=== PATIENT | male | born 2000 | race Two or more races ===

== ENCOUNTER 2025-03-13 11:13 | Emergency (ER) | payer OTHER, MEDICAID, SELFPAY ==
[2025-03-13 11:37] VITALS: BP 148/96; PULSE 105; RESP 16; TEMP 37.9; O2SAT 98; BMI 34.1
--- NOTE | 2025-03-13 12:22 | PD.EDFEVER ---
ED Fever RME/HPI General Chief Complaint: Fever Stated Complaint: Fever, numbness to his face X 3 days Time Seen by Provider: 03/13/25 11:21 Arrival date/time: 03/13/25 11:13 This is a 25-year-old male that comes in with complaints of fever and numbness to his face and his arms bilaterally. Patient states that he was recently seen by his primary provider and was prescribed antibiotics. Patient was prescribed Augmentin. Patient has been sick for the past week. Patient was told that he had a sinus infection. Patient comes in very anxious and states that he is not feeling better. Patient denies any past medical history other than asthma. Related Data Previous Rx's ?Medication ?Instructions ?Recorded albuterol sulfate 90 mcg/actuation 2 puff inhalation Q4H PRN 03/09/18 aerosol inhaler shortness of breath or wheezing #18 grams ibuprofen 600 mg tablet 600 mg PO QID PRN fever or pain 03/13/25 #14 tabs Allergies Allergy/AdvReac Type Severity Reaction Status Date / Time No Known Allergies Allergy Verified 03/13/25 11:19 Review of Systems Review of Systems Systems Reviewed: All systems reviewed, normal except as documented Past Medical History Past Medical History RESPIRATORY: Positive Asthma Physical Exam Narrative Physical exam: VITAL SIGNS: Reviewed. GENERAL APPEARANCE: Alert and interactive, follows commands, no acute distress, HEAD AND FACE: Non-traumatic. ENT: PERRL, conjuctiva pink and clear, eyelid no trauma, Mucous membrane moist. NECK: Supple, nontender, no nuchal rigidity. CHEST: No tenderness, no crepitus, no paradoxical movement, no retractions. LUNGS: Clear, well ventilated, symmetric, no rales, no wheezing, no rhonchi, no stridor, good breath sounds bilaterally. HEART: Regular rate, regular rhythm, no murmur, no gallops. ABDOMEN: Soft, nondistended, no guarding, nontender NEUROLOGICAL: Gross motor function intact sensory function intact, Appropriate for age. MUSCULOSKELETAL: low back nontender, full range of motion. EXTREMITIES: No redness no swelling no skin breakdown on bilateral foot and leg. Distal neurovascular status intact bilateral foot SKIN: Color pink, dry, no rash, no lacerations, no abrasions, no contusions. Course Quality Measures none Orders Category Date Time Status Ibuprofen Tab [Motrin Tab] Med 03/13/25 12:17 Discontinued 800 mg PO X1 ONE hydrOXYzine HCL [Atarax] Med 03/13/25 12:17 Discontinued 25 mg PO X1 ONE Vital Signs Vital signs: Vital Signs Temperature 100.3 F 03/13/25 11:37 Pulse Rate 105 H 03/13/25 11:37 Respiratory Rate 16 03/13/25 11:37 Blood Pressure 148/96 H 03/13/25 11:37 Pulse Oximetry (%) 98 03/13/25 11:37 Oxygen Delivery Method Room Air 03/13/25 11:37 Fever MDM Narrative MDM Narrative:: Patient feels better. Patient was given hydroxyzine and ibuprofen. Patient symptoms resolved. Patient states he feels better to go home at this time. I told him that they can continue antibiotics for now. Follow-up with primary provider in 1 to 2 days. Come back to emergency room if symptoms change or worsen. Patient data External records reviewed:: [facility] previous records Clinical information provided by:: patient Social determinants that could affect healthcare access:: none Patient has the following chronic illnesses:: none How is presenting disease/condition affected by chronic disease/condition?: no chronic disease Evaluation data The following diagnostics were reviewed and interpreted by me:: other (specify) (none) Lab and/or radiology exams considered but not ordered:: none Interpretation Summary: see note Medications / Prescriptions Medications or Prescriptions considered but not ordered:: none Medication administrations:: Medication Administration History Discontinued Medications Hydroxyzine HCl (Hydroxyzine Hcl 25 Mg Tablet) 25 mg PO X1 ONE Stop: 03/13/25 12:18 Last Admin: 03/13/25 12:25 Dose: 25 mg Documented By: CARLOS Ibuprofen (Ibuprofen Tab 400 Mg Tablet) 800 mg PO X1 ONE Stop: 03/13/25 12:18 Last Admin: 03/13/25 12:24 Dose: 800 mg Documented By: CARLOS see [facility] Consultations Consultation(s) initiated? (list below): No Diagnosis Fever Differential Diagnosis: cellulitis, viral infection and other (allergic reaction ) Most likely diagnosis given after review of the tests above:: anxiety Admission Indicated Admission indicated?: not indicated Admission Request Was there a request for admission?: No Disposition Plan Disposition Plan: Discharge Discharge Attestation Discharge Attestation: The patient and all family members were given an opportunity to ask questions and understood the discharge instructions. Discharge instructions specifically effects, indications for sooner follow up or return to the emergency department, and the expected course of current diagnosis. Patient condition: Stable Discharge Plan Plan Patient Disposition: HOME (Self Care) Patient condition on transfer: Stable Prescriptions/Referrals Prescriptions/Med Rec: New ibuprofen 600 mg tablet 600 mg PO QID PRN (Reason: fever or pain) Qty: 14 0RF No Action albuterol sulfate 90 mcg/actuation HFA aerosol inhaler 2 puff INH Q4H PRN (Reason: shortness of breath or wheezing) Qty: 18 0RF Rx Instructions: administer with spacer Referrals: No Primary/Family,Physician [Referring Provider] - In 1 week Problem List Clinical Impression: Fever, Anxiety Patient/Caregiver Discharge Instructions Discharge Activity: activity as tolerated Education Materials: ED Anxiety Reaction, ED Fever Control (Adult) Additional Instructions: Follow up with primary provider in 1-2 days. Come back to ED if symptoms change or worsen Print Language: [place] Stand Alone Forms: Elizabeth Award Info., Patient Portal Info Letter PA/JOHN Supervising Physician PA/CASTING AGENT Supervising Physician: kailee
[2025-03-13] MEDS: IBUPROFEN TAB 400 MG TABLET 800 MG PO (12:24)
[2025-03-13] MEDS: hydrOXYzine HCL 25 MG TABLET PO (12:25)
== END 2025-03-13 13:17 | disposition home or self-care (01) ==
PROVIDERS: Emergency Provider Emergency Medicine; PCP Family Medicine
DX: F41.9 Anxiety disorder, unspecified (principal); R50.9 Fever, unspecified
CPT/HCPCS: 99282; A9270